=== PATIENT | male | born 1945 | race African-American/Black ===

== ENCOUNTER 2018-08-06 12:15 | Inpatient (IN) | payer OTHER ==
[2018-08-06 12:39] VITALS: BMI 23.1
--- NOTE | 2018-08-06 13:11 | PDOC ---
History of Present Illness - General Chief Complaint: Shortness of Breath Stated Complaint: SOB Time Seen by Provider: 08/06/18 13:11 - History of Present Illness Initial Comments: 73yo M with history of hypertension presenting with shortness of breath. Patient is <1 ppd smoker x 40 years. History of childhood asthma and possible COPD for which he was on an inhaler, most recently a year ago. Last saw a doctor about a year ago. Has not taken his hypertension medicine for about three months because his prescription ran out. Has felt SOB before but not with leg swelling. Reports that he is unable to walk two blocks without feeling short winded. He also feels short of breath upon laying flat. No history of [place] or heart failure. Never seen a hydrology teacher. Endorses a cough productive of clear sputum and nasal congestion. Endorses sick contacts. No recent travel. No fevers, chills, chest pain, or abdominal pain. Past History - Past Medical History Allergies/Adverse Reactions: Allergies Allergy/AdvReac Type Severity Reaction Status Date / Time No Known Allergies Allergy Unverified 08/06/18 13:01 Home Medications: Ambulatory Orders NK [No Known Home Medication] 08/06/18 COPD: No HTN: Yes Liver Disease: No - Surgical History Neurologic Surgery: No - Immunization History Immunization Up to Date: No - Suicide/Smoking/Psychosocial Hx Smoking Status: Yes Smoking History: Current every day smoker Years of Tobacco Use: 50 Have you smoked in the past 12 months: No Number of Cigarettes Smoked Daily: 20 Information on smoking cessation initiated: No Hx Alcohol Use: No Drug/Substance Use Hx: No Review of Systems - Review of Systems Comments:: Constitutional: no fever, no chills HEENT: no throat pain, +nasal congestion Cardiovascular: no chest pain, no palpitations Respiratory: +cough, +shortness of breath Gastrointestinal: no abdominal pain, no nausea, no vomiting Genitourinary: no dysuria, no frequency Musculoskeletal: no myalgia, no arthralgia Skin: no rash, no itching Neurologic: no headache, no dizziness *Physical Exam - Vital Signs Last Vital Signs Temp Pulse Resp BP Pulse Ox 97.8 F 89 16 169/106 H 94 L 08/06/18 12:36 08/06/18 12:36 08/06/18 12:36 08/06/18 12:36 08/06/18 12:36 - Physical Exam Comments: General: Awake, alert, and fully oriented, in no acute distress Head: No signs of trauma Eyes: EOMI, sclera anicteric ENT: Moist mucus membranes Neck: Normal ROM, supple Lungs: Expiratory wheezes present bilaterally Cardio: Regular rhythm, S1 and S2 present Abdomen: Soft, nontender. No guarding, no rebound, no masses Extremities: Normal range of motion, Distal pulses present SKIN: Warm, Dry, normal turgor Neurologic: Cranial nerves II through XII grossly intact. Normal speech Moderate Sedation - Procedure Monitoring Vital Signs: Procedure Monitoring Vital Signs Temperature 97.8 F 08/06/18 12:36 Pulse Rate 89 08/06/18 12:36 Respiratory Rate 16 08/06/18 12:36 Blood Pressure 169/106 H 08/06/18 12:36 O2 Sat by Pulse Oximetry (%) 94 L 08/06/18 12:36 ED Treatment Course - LABORATORY CBC & Chemistry Diagram: 08/06/18 13:52 08/06/18 13:52 Medical Decision Making - Medical Decision Making 73yo M with history of hypertension presenting with shortness of breath. -DDX includes but not limited to CHF, [place], COPD, Asthma, URI -Labs -CXR -EKG: rate 88, QTc 493, no ST d/e 08/06/18 14:44 WBC= 11.6 BNP elevated, 7742 Tpn=0.42 CXR pending -Duoneb, prednisone, ASA 08/06/18 15:03 Patient reports improvement in SOB after receiving breathing patients Discussed case with Dr. Brown who accepted patient for admission. 08/06/18 16:22 CXR report: "consolidation/pneumonia in the right lung base with small-to- moderate right pleural effusion. Mild cardiomegaly" Ordered 1g Rocephin and 500mg Azithromycin 08/06/18 18:11 08/06/18 18:25 *DC/Admit/Observation/Transfer Diagnosis at time of Disposition: CHF (congestive heart failure), COPD exacerbation - Discharge Dispostion Condition at time of disposition: Guarded Decision to Admit order: Yes - Referrals - Patient Instructions - Post Discharge Activity
[2018-08-06 14:32] LABS: BASO % 1.1 % (0-2.0); EOS % 1.2 % (0-4.5); HEMOGLOBIN 11.6 GM/dL (11.7-16.9); LYMPH % 22.5 % (8-40); MCH 25.3 pg (25.7-33.7); MCHC 33.1 g/dl (32.0-35.9); MEAN CELL VOLUME 76.4 fl (80-96); MEAN PLT VOLUME 6.6 fl (7.5-11.1); MONO % 8.6 % (3.8-10.2); NEUT % 66.6 % (42.8-82.8); PLATELET COUNT 524 K/MM3 (134-434); RBC 4.58 M/mm3 (4.00-5.60); RDW 18.3 % (11.9-15.9); WHITE BLOOD COUNT 11.6 K/mm3 (4.0-10.0)
[2018-08-06 14:46] LABS: ALBUMIN 2.8 g/dl (3.4-5.0); ALK PHOS 91 U/L (45-117); ANION GAP 7 MMOL/L (8-16); BILIRUBIN,TOTAL 0.7 mg/dL (0.2-1); BLOOD UREA NITROGEN 14 mg/dL (7-18); CALCIUM 8.8 mg/dL (8.5-10.1); CHLORIDE 102 mmol/L (98-107); CO2 28 mmol/L (21-32); GLUCOSE,RANDOM 81 mg/dL (74-106); SGOT/AST 13 U/L (15-37); SGPT/ALT 14 U/L (13-61); SODIUM 137 mmol/L (136-145); TOT PROT 7.8 g/dl (6.4-8.2)
[2018-08-06] MEDS ORDERED: predniSONE 20 MG TABLET (UD) PO ONE (15:29)
[2018-08-06] MEDS ORDERED: ALBUTEROL SO4 2.5/IPRATROPIUM 0.5 INH SOL 3 ML VIAL.NEB. NEB ONE ×2 (15:29→15:38)
[2018-08-06] MEDS ORDERED: predniSONE 20 MG TABLET (UD) ONE (15:38)
[2018-08-06] MEDS ORDERED: ACETAMINOPHEN INJECTION 100 ML IVPB ONE (15:38)
[2018-08-06] MEDS ORDERED: ALBUTEROL SO4 0.083% IH SOL 2.5 MG/3 ML VIAL.NEB. NEB ONE (15:39)
--- NOTE | 2018-08-06 15:39 | EKG ---
Test Reason : Blood Pressure : / mmHG Vent. Rate : 088 BPM Atrial Rate : 088 BPM P-R Int : 186 ms QRS Dur : 110 ms QT Int : 408 ms P-R-T Axes : 066 -19 085 degrees QTc Int : 493 ms SINUS RHYTHM WITH OCCASIONAL PREMATURE VENTRICULAR COMPLEXES SEPTAL INFARCT , AGE UNDETERMINED ABNORMAL ECG NO PREVIOUS ECGS AVAILABLE Confirmed by ISRA SOLIS MD ([id number]) on 08/06/2018 3:39:07 PM Referred By: Confirmed By:ISRA SOLIS MD
[2018-08-06] MEDS ORDERED: IPRATROPIUM BR 0.02% 0.5 MG/2.5 ML VIAL.NEB. NEB ONE (15:40)
[2018-08-06] MEDS ORDERED: ASPIRIN 81 MG CHEWABLE TABLETS PO ONE (16:54)
--- NOTE | 2018-08-06 16:54 | PDOC ---
Attending Attestation - Resident Resident Name: Patricia Harpth - ED Attending Attestation I have performed the following: I have examined & evaluated the patient, The case was reviewed & discussed with the resident, I agree w/resident's findings & plan, Exceptions are as noted - Medical Decision Making 08/06/18 16:50 A portion of this note was documented by scribe services under my direction. I have reviewed the details of the note, within reason, and agree with the documentation with the following case summary and management plan written by me. Patient treated in the ED. Nursing notes are reviewed and incorporated into the medical decision-making. Vital signs reviewed. Peripheral IV access obtained by the nurse, laboratory studies are drawn and sent, reviewed and interpreted by myself. Vital Signs Temp Pulse Resp BP Pulse Ox 97.8 F 94 H 20 164/108 H 92 L 08/06/18 12:36 08/06/18 15:17 08/06/18 15:17 18 15:17 08/06/18 15:17 73-year-old male with history of hypertension, nonadherent his medications, does not have a doctor, presents with increasing difficulty breathing. The patient reports is a chronic smoker. Patient states over the last several weeks of becoming increasingly more dyspneic and with worsening exercising tolerance. Since endorsing increasing lower extremity edema and orthopnea. Denies any chest pain. Denies recent illnesses. The patient has some slight wheezing. Differential includes COPD versus CHF. She may potentially be both. We'll give duonabs and prednisone. We may give Lasix if fluid overloaded. Patient will be admitted to the hospital for further evaluation. Troponin is elevated. The patient sustained an CT that led to congestive heart failure? We'll give aspirin. Cardiology consult. CBC, BMP 08/06/18 13:52 08/06/18 13:52 CMP Sodium 137 mmol/L (136-145) 08/06/18 13:52 Potassium 4.0 mmol/L (3.5-5.1) 08/06/18 13:52 Chloride 102 mmol/L (98-107) 08/06/18 13:52 Carbon Dioxide 28 mmol/L (21-32) 08/06/18 13:52 Anion Gap 7 MMOL/L (8-16) L 08/06/18 13:52 BUN 14 mg/dL (7-18) 08/06/18 13:52 Creatinine 1.0 mg/dL (0.55-1.3) 08/06/18 13:52 Creat Clearance w eGFR > 60 (>60) 08/06/18 13:52 Random Glucose 81 mg/dL (74-106) 08/06/18 13:52 Calcium 8.8 mg/dL (8.5-10.1) 08/06/18 13:52 Total Bilirubin 0.7 mg/dL (0.2-1) 08/06/18 13:52 AST 13 U/L (15-37) L 08/06/18 13:52 ALT 14 U/L (13-61) 08/06/18 13:52 Alkaline Phosphatase 91 U/L (45-117) 08/06/18 13:52 Troponin I 0.42 ng/ml (0.00-0.05) H 08/06/18 13:52 B-Natriuretic Peptide 7742.0 pg/ml (5-125) H 08/06/18 13:52 Total Protein 7.8 g/dl (6.4-8.2) 08/06/18 13:52 Albumin 2.8 g/dl (3.4-5.0) L 08/06/18 13:52 <Dick Lux - Last Filed: 08/06/18 16:55> - HPI HPI: 08/06/18 16:58 The patient is a 73 year old male with a past medical history of hypertension and childhood asthma (on inhaler last year) who presents to the emergency department for evaluation of shortness of breath. Patient reports feeling SOB with LE edema. Patient reports MAHAN after walking two blocks which has never occurred before. Patient admits to not taking hypertension medication since prescription ran out months ago. Patient reports associated nasal congestion and sick contact. Denies chest pain, abdominal pain, recent travel, fevers, or chills. - Physicial Exam PE: GENERAL: Awake, alert, and fully oriented, in no acute distress HEAD: No signs of trauma EYES: PERRLA, EOMI, sclera anicteric, conjunctiva clear ENT: Auricles normal inspection, hearing grossly normal, nares patent. NECK: Normal ROM, supple, no lymphadenopathy, JVD, or masses LUNGS: (+)Slight expiratory wheezing bilaterally. HEART: Regular rate and rhythm, normal S1 and S2, no murmurs, rubs or gallops ABDOMEN: Soft, nontender, normoactive bowel sounds. No guarding, no rebound. No masses EXTREMITIES: (+)1 plus pitting edema in lower extremities bilaterally. NEUROLOGICAL: Cranial nerves II through XII grossly intact. Normal speech, normal gait SKIN: Warm, Dry, normal turgor, no rashes or lesions noted. <Adele Barrett - Last Filed: 08/06/18 16:58> Heart Score/ECG Review #1 ECG reviewed & interpreted by me at: 14:05 08/06/18 16:55 NSR 88, no std/marina, occasional PVC, Q wave V1-V2, QTC 493 msec <Dick Lux - Last Filed: 08/06/18 16:55> Attestations - Attestations Documentation prepared by Adele Barrett, acting as medical staff assistant for Dick Lux MD. <Adele Barrett - Last Filed: 08/06/18 16:58>
[2018-08-06] MEDS ORDERED: ASPIRIN 81 MG CHEWABLE TABLETS ONE (17:36)
[2018-08-06] MEDS ORDERED: AZITHROMYCIN IVPB 500 MG in DEXTROSE 5%-WATER - 250 ML IVPB ONE (18:20)
[2018-08-06] MEDS ORDERED: CEFTRIAXONE 1,000 MG in DEXTROSE 5%-WATER - 50 ML IVPB ONE (18:20)
[2018-08-06] MEDS ORDERED: ACETAMINOPHEN 325 MG TABLET (FP) PO PRN (19:46)
--- NOTE | 2018-08-06 19:55 | HP ---
Admitting History and Physical - Primary Care Physician PCP: Joseph Brown - Admission History of Present Illness: 73yo M with history of hypertension presenting with shortness of breath. Patient is <1 ppd smoker x 40 years. History of childhood asthma and possible COPD for which he was on an inhaler, most recently a year ago. Last saw a doctor about a year ago. Has not taken his hypertension medicine for about three months because his prescription ran out. Has felt SOB before but not with leg swelling. Reports that he is unable to walk two blocks without feeling short winded. He also feels short of breath upon laying flat. No history of [place] or heart failure. Never seen a board certified music therapist. Endorses a cough productive of clear sputum and nasal congestion. Endorses sick contacts. No recent travel. No fevers, chills, chest pain, or abdominal pain. - Past Medical History Cardiovascular: Yes: HTN Pulmonary: Yes: COPD - Smoking History Smoking history: Current every day smoker Have you smoked in the past 12 months: No Aproximately how many cigarettes per day: 20 - Alcohol/Substance Use Hx Alcohol Use: No Home Medications - Allergies Allergies/Adverse Reactions: Allergies Allergy/AdvReac Type Severity Reaction Status Date / Time No Known Allergies Allergy Unverified 08/06/18 13:01 - Home Medications Home Medications: Ambulatory Orders Amlodipine Besylate [Norvasc -] 10 mg PO DAILY #30 tablet 08/08/18 Amox-Tr/K Cl [Augmentin 875-125mg Tablet -] 1 tab PO BID@0800,1730 #14 tablet Carvedilol [Coreg -] 3.125 mg PO BID #60 tablet 08/08/18 Prednisone 10 mg PO ASDIR #30 tablet 08/08/18 Spironolactone [Aldactone -] 25 mg PO DAILY #30 tablet 08/08/18 Physical Examination Vital Signs: Vital Signs Temperature 97.6 F 08/06/18 19:00 Pulse Rate 84 08/06/18 19:00 Respiratory Rate 28 H 08/06/18 19:00 Blood Pressure 148/96 08/06/18 19:00 O2 Sat by Pulse Oximetry (%) 96 08/06/18 17:58 Constitutional: Yes: No Distress HENT: Yes: Atraumatic Neck: Yes: Supple Cardiovascular: Yes: Regular Rate and Rhythm Respiratory: Yes: CTA Bilaterally Gastrointestinal: Yes: Normal Bowel Sounds Extremities: Yes: WNL Peripheral Pulses WNL: Yes Neurological: Yes: Alert, Oriented Labs: CBC, BMP 08/06/18 13:52 08/06/18 13:52 Imaging - Results X-ray: Report Reviewed Problem List - Problems (1) CHF (congestive heart failure) Assessment/Plan: stable Code(s): I50.9 - HEART FAILURE, UNSPECIFIED Qualifiers: Heart failure type: diastolic Heart failure chronicity: acute on chronic Qualified Code(s): I50.33 - Acute on chronic diastolic (congestive) heart failure (2) COPD exacerbation Assessment/Plan: iv steroids duo nebs Code(s): J44.1 - CHRONIC OBSTRUCTIVE PULMONARY DISEASE W (ACUTE) EXACERBATION (3) Pneumonia Assessment/Plan: iv abx id on board Code(s): J18.9 - PNEUMONIA, UNSPECIFIED ORGANISM Qualifiers: Pneumonia type: due to unspecified organism Laterality: right Lung location: lower lobe of lung Qualified Code(s): J18.1 - Lobar pneumonia, unspecified organism Assessment/Plan Laboratory Tests 08/06/18 08/06/18 08/06/18 13:52 13:52 13:52 WBC 11.6 H RBC 4.58 Hgb 11.6 L Hct 35.0 L MCV 76.4 L MCH 25.3 L MCHC 33.1 RDW 18.3 H Plt Count 524 H MPV 6.6 L Absolute Neuts (auto) 7.7 Neutrophils % 66.6 Lymphocytes % 22.5 Monocytes % 8.6 Eosinophils % 1.2 Basophils % 1.1 Nucleated RBC % 0 Sodium 137 Potassium 4.0 Chloride 102 Carbon Dioxide 28 Anion Gap 7 L BUN 14 Creatinine 1.0 Creat Clearance w eGFR > 60 Random Glucose 81 Calcium 8.8 Total Bilirubin 0.7 AST 13 L ALT 14 Alkaline Phosphatase 91 Troponin I 0.42 H B-Natriuretic Peptide 7742.0 H Cancelled Total Protein 7.8 Albumin 2.8 L Active Medications Generic Name Dose Route Start Last Admin Trade Name Freq PRN Reason Stop Dose Admin Acetaminophen 650 mg 08/06/18 19:46 Tylenol - PO Q6H PRN FEVER Amlodipine Besylate 10 mg 08/06/18 20:00 Norvasc - PO DAILY LUCY Heparin Sodium (Porcine) 5,000 unit 08/06/18 22:00 Heparin - SQ BID LUCY Active Medications Generic Name Dose Route Start Last Admin Trade Name Evensq PRN Reason Stop Dose Admin Acetaminophen 650 mg 08/06/18 19:46 Tylenol - PO Q6H PRN FEVER Amlodipine Besylate 10 mg 08/06/18 20:00 08/07/18 10:02 Norvasc - PO 10 mg DAILY LUCY Administration Heparin Sodium (Porcine) 5,000 unit 08/06/18 22:00 08/07/18 10:02 Heparin - SQ 5,000 unit BID LUCY Administration Ceftriaxone Sodium 1 gm/ 50 mls @ 100 mls/hr 08/07/18 10:00 08/07/18 10:02 Dextrose IVPB 100 mls/hr DAILY LUCY Administration Protocol Methylprednisolone Sodium Succinate 60 mg 08/06/18 20:15 08/07/18 17:09 Solu-Medrol - IVPUSH 60 mg Q8H-IV LUCY Administration
[2018-08-06] MEDS: methylPREDNISolone NA SUCC 40 MG/1 ML VIAL IVPUSH SCH (21:29)
[2018-08-06] MEDS: amLODIPine BESYLATE 10 MG TABLET (FP) PO SCH (21:29)
[2018-08-06] MEDS: HEPARIN NA (PORCINE) 5,000 UNITS/ML 1ML VIAL SQ SCH (21:34)
[2018-08-07] MEDS: methylPREDNISolone NA SUCC 40 MG/1 ML VIAL IVPUSH SCH ×3 (01:23→17:09)
[2018-08-07 06:53] LABS: BASO % 0.1 % (0-2.0); HEMATOCRIT 34.4 % (35.4-49); HEMOGLOBIN 11.5 GM/dL (11.7-16.9); LYMPH % 20.4 % (8-40); MCH 25.7 pg (25.7-33.7); MCHC 33.4 g/dl (32.0-35.9); MEAN PLT VOLUME 6.8 fl (7.5-11.1); MONO % 1.5 % (3.8-10.2); PLATELET COUNT 544 K/MM3 (134-434); RBC 4.47 M/mm3 (4.00-5.60); RDW 18.8 % (11.9-15.9); WHITE BLOOD COUNT 6.6 K/mm3 (4.0-10.0)
[2018-08-07 07:19] LABS: ALBUMIN 2.7 g/dl (3.4-5.0); ALK PHOS 88 U/L (45-117); ANION GAP 6 MMOL/L (8-16); BILIRUBIN,TOTAL 0.2 mg/dL (0.2-1); BLOOD UREA NITROGEN 19 mg/dL (7-18); CALCIUM 9.1 mg/dL (8.5-10.1); CHLORIDE 101 mmol/L (98-107); CO2 27 mmol/L (21-32); CREATININE 0.9 mg/dL (0.55-1.3); GLUCOSE,RANDOM 148 mg/dL (74-106); POTASSIUM 4.6 mmol/L (3.5-5.1); SGOT/AST 11 U/L (15-37); SGPT/ALT 14 U/L (13-61); SODIUM 134 mmol/L (136-145); TOT PROT 8.2 g/dl (6.4-8.2)
[2018-08-07] MEDS ORDERED: DEXTROSE 5%-WATER - 50 ML IVPB ONE (10:00)
[2018-08-07] MEDS ORDERED: cefTRIAXone SODIUM 1 GM VIAL ONE (10:00)
[2018-08-07] MEDS: HEPARIN NA (PORCINE) 5,000 UNITS/ML 1ML VIAL SQ SCH ×2 (10:02→21:13)
[2018-08-07] MEDS: CEFTRIAXONE 1 GM in DEXTROSE 5%-WATER - 50 ML IVPB SCH (10:02)
[2018-08-07] MEDS: amLODIPine BESYLATE 10 MG TABLET (FP) PO SCH (10:02)
--- NOTE | 2018-08-07 17:19 | PN ---
Progress Note, Physician - Current Medication List Current Medications: Active Medications Acetaminophen (Tylenol -) 650 mg PO Q6H PRN PRN Reason: FEVER Amlodipine Besylate (Norvasc -) 10 mg PO DAILY LUCY Last Admin: 08/07/18 10:02 Dose: 10 mg Heparin Sodium (Porcine) (Heparin -) 5,000 unit SQ BID LUCY Last Admin: 08/07/18 10:02 Dose: 5,000 unit Ceftriaxone Sodium 1 gm/ (Dextrose) 50 mls @ 100 mls/hr IVPB DAILY LUCY; Protocol Last Admin: 08/07/18 10:02 Dose: 100 mls/hr Methylprednisolone Sodium Succinate (Solu-Medrol -) 60 mg IVPUSH Q8H-IV LUCY Last Admin: 08/07/18 17:09 Dose: 60 mg - Objective Vital Signs: Vital Signs Temperature 97.7 F 08/07/18 13:51 Pulse Rate 88 08/07/18 13:51 Respiratory Rate 17 08/07/18 13:51 Blood Pressure 151/98 08/07/18 13:51 O2 Sat by Pulse Oximetry (%) 96 08/07/18 09:00 Constitutional: Yes: No Distress HENT: Yes: Atraumatic Neck: Yes: Supple Cardiovascular: Yes: Regular Rate and Rhythm Respiratory: Yes: CTA Bilaterally Gastrointestinal: Yes: Normal Bowel Sounds Extremities: Yes: WNL Peripheral Pulses WNL: Yes Neurological: Yes: Alert, Oriented Labs: CBC, BMP 08/07/18 06:20 08/07/18 06:20 Problem List - Problems (1) CHF (congestive heart failure) Assessment/Plan: stable Code(s): I50.9 - HEART FAILURE, UNSPECIFIED (2) COPD exacerbation Assessment/Plan: iv steroids duo nebs Code(s): J44.1 - CHRONIC OBSTRUCTIVE PULMONARY DISEASE W (ACUTE) EXACERBATION (3) Pneumonia Assessment/Plan: iv abx Code(s): J18.9 - PNEUMONIA, UNSPECIFIED ORGANISM (4) HTN (hypertension) Assessment/Plan: on meds Code(s): I10 - ESSENTIAL (PRIMARY) HYPERTENSION
--- NOTE | 2018-08-07 18:15 | CON.ID ---
Consult - Past Medical History Cardio/Vascular: Yes: HTN Pulmonary: Yes: COPD - Alcohol/Substance Use Hx Alcohol Use: No - Smoking History Smoking history: Current every day smoker Have you smoked in the past 12 months: No Aproximately how many cigarettes per day: 20 Home Medications - Allergies Allergies/Adverse Reactions: Allergies Allergy/AdvReac Type Severity Reaction Status Date / Time No Known Allergies Allergy Unverified 08/06/18 13:01 - Home Medications Home Medications: Ambulatory Orders NK [No Known Home Medication] 08/06/18 Physical Exam Vital Signs: Vital Signs Temperature 97.4 F L 08/07/18 18:00 Pulse Rate 86 08/07/18 18:00 Respiratory Rate 20 08/07/18 18:00 Blood Pressure 152/105 H 08/07/18 18:00 O2 Sat by Pulse Oximetry (%) 96 08/07/18 09:00 Labs: CBC, BMP 08/07/18 06:20 08/07/18 06:20
[2018-08-07] MEDS: ALBUTEROL SO4 2.5/IPRATROPIUM 0.5 INH SOL 3 ML VIAL.NEB. NEB PRN (21:10)
[2018-08-08] MEDS: methylPREDNISolone NA SUCC 40 MG/1 ML VIAL IVPUSH SCH ×2 (02:31→09:50)
[2018-08-08] MEDS ORDERED: DEXTROSE 5%-WATER - 50 ML IVPB ONE (09:43)
[2018-08-08] MEDS ORDERED: cefTRIAXone SODIUM 1 GM VIAL ONE (09:43)
[2018-08-08] MEDS: HEPARIN NA (PORCINE) 5,000 UNITS/ML 1ML VIAL SQ SCH ×2 (09:49→22:08)
[2018-08-08] MEDS: CEFTRIAXONE 1 GM in DEXTROSE 5%-WATER - 50 ML IVPB SCH (09:49)
[2018-08-08] MEDS: amLODIPine BESYLATE 10 MG TABLET (FP) PO SCH (09:50)
--- NOTE | 2018-08-08 14:34 | PN ---
Progress Note, Physician History of Present Illness: patient doing well no new issues breathing well still with ronchi - Current Medication List Current Medications: Active Medications Acetaminophen (Tylenol -) 650 mg PO Q6H PRN PRN Reason: FEVER Albuterol/Ipratropium (Duoneb -) 1 amp NEB Q4H PRN PRN Reason: SHORTNESS OF BREATH Last Admin: 08/07/18 21:10 Dose: 1 amp Amlodipine Besylate (Norvasc -) 10 mg PO DAILY [facility] Last Admin: 08/08/18 09:50 Dose: 10 mg Heparin Sodium (Porcine) (Heparin -) 5,000 unit SQ BID LUCY Last Admin: 08/08/18 09:49 Dose: 5,000 unit Ceftriaxone Sodium 1 gm/ (Dextrose) 50 mls @ 100 mls/hr IVPB DAILY LUCY; Protocol Last Admin: 08/08/18 09:49 Dose: 100 mls/hr Methylprednisolone Sodium Succinate (Solu-Medrol -) 60 mg IVPUSH Q8H-IV LUCY Last Admin: 08/08/18 09:50 Dose: 60 mg - Objective Vital Signs: Vital Signs Temperature 98 F 08/08/18 13:20 Pulse Rate 78 08/08/18 13:20 Respiratory Rate 17 08/08/18 13:20 Blood Pressure 154/91 08/08/18 13:20 O2 Sat by Pulse Oximetry (%) 96 08/08/18 09:00 Constitutional: Yes: No Distress, Calm Cardiovascular: Yes: Regular Rate and Rhythm Respiratory: Yes: Regular, Poor Air Entry, Rhonchi Gastrointestinal: Yes: Normal Bowel Sounds, Soft Musculoskeletal: Yes: WNL Extremities: Yes: WNL Neurological: Yes: Alert, Oriented Psychiatric: Yes: Alert, Oriented Labs: CBC, BMP 08/07/18 06:20 08/07/18 06:20 Assessment/Plan Problem List - Problems (1) CHF (congestive heart failure) Assessment/Plan: stable Code(s): I50.9 - HEART FAILURE, UNSPECIFIED (2) COPD exacerbation Assessment/Plan: iv steroids duo nebs Code(s): J44.1 - CHRONIC OBSTRUCTIVE PULMONARY DISEASE W (ACUTE) EXACERBATION (3) Pneumonia Assessment/Plan: iv abx Code(s): J18.9 - PNEUMONIA, UNSPECIFIED ORGANISM (4) HTN (hypertension) Assessment/Plan: on meds Code(s): I10 - ESSENTIAL (PRIMARY) HYPERTENSION patient still with ronchi plan continue current mgmt neb incentive yony rest as per the team
--- NOTE | 2018-08-08 16:30 | PN ---
Progress Note, Physician - Current Medication List Current Medications: Active Medications Acetaminophen (Tylenol -) 650 mg PO Q6H PRN PRN Reason: FEVER Albuterol/Ipratropium (Duoneb -) 1 amp NEB Q4H PRN PRN Reason: SHORTNESS OF BREATH Last Admin: 08/07/18 21:10 Dose: 1 amp Amlodipine Besylate (Norvasc -) 10 mg PO DAILY LUCY Last Admin: 08/08/18 09:50 Dose: 10 mg Heparin Sodium (Porcine) (Heparin -) 5,000 unit SQ BID LUCY Last Admin: 08/08/18 09:49 Dose: 5,000 unit Ceftriaxone Sodium 1 gm/ (Dextrose) 50 mls @ 100 mls/hr IVPB DAILY LUCY; Protocol Last Admin: 08/08/18 09:49 Dose: 100 mls/hr Methylprednisolone Sodium Succinate (Solu-Medrol -) 40 mg IVPUSH Q8H-IV LUCY - Objective Vital Signs: Vital Signs Temperature 98 F 08/08/18 13:20 Pulse Rate 78 08/08/18 13:20 Respiratory Rate 17 08/08/18 13:20 Blood Pressure 154/91 08/08/18 13:20 O2 Sat by Pulse Oximetry (%) 96 08/08/18 09:00 Labs: CBC, BMP 08/07/18 06:20 08/07/18 06:20 <Mohan Flores - Last Filed: 08/08/18 16:56> History of Present Illness: doing well - Current Medication List Current Medications: Active Medications Acetaminophen (Tylenol -) 650 mg PO Q6H PRN PRN Reason: FEVER Albuterol/Ipratropium (Duoneb -) 1 amp NEB Q4H PRN PRN Reason: SHORTNESS OF BREATH Last Admin: 08/07/18 21:10 Dose: 1 amp Amlodipine Besylate (Norvasc -) 10 mg PO DAILY LUCY Last Admin: 08/08/18 09:50 Dose: 10 mg Heparin Sodium (Porcine) (Heparin -) 5,000 unit SQ BID LUCY Last Admin: 08/08/18 09:49 Dose: 5,000 unit Ceftriaxone Sodium 1 gm/ (Dextrose) 50 mls @ 100 mls/hr IVPB DAILY LUCY; Protocol Last Admin: 08/08/18 09:49 Dose: 100 mls/hr Methylprednisolone Sodium Succinate (Solu-Medrol -) 60 mg IVPUSH Q8H-IV LUCY Last Admin: 08/08/18 09:50 Dose: 60 mg - Objective Vital Signs: Vital Signs Temperature 98 F 08/08/18 13:20 Pulse Rate 78 08/08/18 13:20 Respiratory Rate 17 08/08/18 13:20 Blood Pressure 154/91 08/08/18 13:20 O2 Sat by Pulse Oximetry (%) 96 08/08/18 09:00 Constitutional: Yes: No Distress HENT: Yes: Atraumatic Neck: Yes: Supple Cardiovascular: Yes: Regular Rate and Rhythm Respiratory: Yes: CTA Bilaterally Gastrointestinal: Yes: Normal Bowel Sounds Extremities: Yes: WNL Edema: No Peripheral Pulses WNL: Yes Neurological: Yes: Alert, Oriented Labs: CBC, BMP 08/07/18 06:20 08/07/18 06:20 <Joseph Brown - Last Filed: 08/09/18 18:54> Problem List - Problems (1) CHF (congestive heart failure) Code(s): I50.9 - HEART FAILURE, UNSPECIFIED Qualifiers: Heart failure type: diastolic Heart failure chronicity: acute on chronic Qualified Code(s): I50.33 - Acute on chronic diastolic (congestive) heart failure (2) COPD exacerbation Code(s): J44.1 - CHRONIC OBSTRUCTIVE PULMONARY DISEASE W (ACUTE) EXACERBATION (3) Pneumonia Code(s): J18.9 - PNEUMONIA, UNSPECIFIED ORGANISM Qualifiers: Pneumonia type: due to unspecified organism Laterality: right Lung location: lower lobe of lung Qualified Code(s): J18.1 - Lobar pneumonia, unspecified organism (4) HTN (hypertension) Code(s): I10 - ESSENTIAL (PRIMARY) HYPERTENSION <Joseph Brown - Last Filed: 08/09/18 18:54> Assessment/Plan Acetaminophen (Tylenol -) 650 mg PO Q6H PRN PRN Reason: FEVER Albuterol/Ipratropium (Duoneb -) 1 amp NEB Q4H PRN PRN Reason: SHORTNESS OF BREATH Last Admin: 08/07/18 21:10 Dose: 1 amp Amlodipine Besylate (Norvasc -) 10 mg PO DAILY LUCY Last Admin: 08/08/18 09:50 Dose: 10 mg Heparin Sodium (Porcine) (Heparin -) 5,000 unit SQ BID LUCY Last Admin: 08/08/18 09:49 Dose: 5,000 unit Ceftriaxone Sodium 1 gm/ (Dextrose) 50 mls @ 100 mls/hr IVPB DAILY LUCY; Protocol Last Admin: 08/08/18 09:49 Dose: 100 mls/hr Methylprednisolone Sodium Succinate (Solu-Medrol -) 60 mg IVPUSH Q8H-IV LUCY Last Admin: 08/08/18 09:50 Dose: 60 mg <Mohan Flores - Last Filed: 08/08/18 16:56>
--- NOTE | 2018-08-08 16:56 | CON.CARD ---
Consult Consult Specialty:: Cardiology Referred by:: Joseph Brown MD Reason for Consultation:: Dyspnea - History of Present Illness Chief Complaint: Dyspnea History of Present Illness: 73yo M with history of hypertension off antihypertensive agents due to noncompliance, smoker presented with shortness of breath since last Monday, chest tightness, orthopnea, without near or true syncope, palpitations, LE edema. Patient is <1 ppd smoker x 40 years. History of childhood asthma and possible COPD for which he was on an inhaler, most recently a year ago. Last saw a doctor about a year ago. Has not taken his hypertension medicine for about three months because his prescription ran out. Reports that he is unable to walk two blocks without feeling short winded. He also feels short of breath upon laying flat. No history of [place] or heart failure. Never seen a purchasing associate. Endorses a cough productive of clear sputum and nasal congestion. Endorses sick contacts. No recent travel. No fevers, chills, chest pain, or abdominal pain. Reports facial, lip and tongue swelling on Valsartan. - History Source History Provided By: Patient Limitations to Obtaining History: No Limitations - Past Medical History Cardio/Vascular: Yes: HTN Pulmonary: Yes: COPD - Alcohol/Substance Use Hx Alcohol Use: No - Smoking History Smoking history: Current every day smoker Have you smoked in the past 12 months: No Aproximately how many cigarettes per day: 20 Home Medications - Allergies Allergies/Adverse Reactions: Allergies Allergy/AdvReac Type Severity Reaction Status Date / Time No Known Allergies Allergy Unverified 08/06/18 13:01 - Home Medications Home Medications: Ambulatory Orders NK [No Known Home Medication] 08/06/18 Review of Systems - Review of Systems Cardiovascular: reports: Shortness of Breath Respiratory: reports: Exercise Intolerance, Orthopnea, SOB, SOB on Exertion Vital Signs: Vital Signs Temperature 98 F 08/08/18 13:20 Pulse Rate 78 08/08/18 13:20 Respiratory Rate 17 08/08/18 13:20 Blood Pressure 154/91 08/08/18 13:20 O2 Sat by Pulse Oximetry (%) 96 08/08/18 09:00 Constitutional: Yes: No Distress, Calm, Thin Neck: Yes: Supple Respiratory: Yes: Regular, Diminished Gastrointestinal: Yes: Normal Bowel Sounds, Soft Cardiovascular: Yes: Regular Rate and Rhythm JVD: No Carotid Bruit: No Heart Sounds: Yes: S1, S2 Murmur: Yes: Systolic Murmur, Grade 1 Edema: No - Other Data Labs, Other Data: CBC, BMP 08/07/18 06:20 08/07/18 06:20 NSR @ 88 LVH, PVC Echo: Pending Imaging - Results Chest X-ray: Report Reviewed (Rt lung base consolidation and effusion) Problem List - Problems (1) Hypertensive cardiomegaly with heart failure Code(s): I11.0 - HYPERTENSIVE HEART DISEASE WITH HEART FAILURE (2) CHF (congestive heart failure) Code(s): I50.9 - HEART FAILURE, UNSPECIFIED Qualifiers: Heart failure type: diastolic Heart failure chronicity: acute on chronic Qualified Code(s): I50.33 - Acute on chronic diastolic (congestive) heart failure (3) Pneumonia Code(s): J18.9 - PNEUMONIA, UNSPECIFIED ORGANISM Qualifiers: Pneumonia type: due to unspecified organism Laterality: right Lung location: lower lobe of lung Qualified Code(s): J18.1 - Lobar pneumonia, unspecified organism (4) Premature ventricular contraction Code(s): I49.3 - VENTRICULAR PREMATURE DEPOLARIZATION Assessment/Plan 1. Acute on chronic diastolic failure with subendocardial ischemic injury 2. Hypertensive cardiomyopathy 3. Valsartan-associated angioedema 4. PVC 5. RLL CAP 6. Microcytic anemia P:1. Diuresis with monitor clinical response, renal fxn and electrolytes, trend trops to document peak 2. Start carvedilol 3.125 bid, Aldactone 25 qd, Norvasc 10 qd with uptitration as tolerated 3. Echo to assess ventricular and valve fxn 4. Complete empiric abx course, will d/c steroids as not in COPD flare, DVT prophylaxis 5. Thank you for consultative opportunity
[2018-08-08] MEDS ORDERED: FUROSEMIDE 40 MG/4 ML INJECTABLE VIAL IVPUSH ONE (17:30)
[2018-08-08] MEDS ORDERED: methylPREDNISolone NA SUCC 40 MG/1 ML VIAL IVPUSH SCH (18:00)
[2018-08-08] MEDS: SPIRONOLACTONE 25 MG TABLET (FP) PO SCH (18:09)
[2018-08-08] MEDS: NICOTINE 21 MG/24 HOURS TOPICAL PATCH TD SCH (22:08)
[2018-08-08] MEDS: CARVEDILOL 3.125 MG TABLET (FP) PO SCH (22:08)
[2018-08-09] MEDS: ALBUTEROL SO4 2.5/IPRATROPIUM 0.5 INH SOL 3 ML VIAL.NEB. NEB PRN ×2 (06:10→15:00)
[2018-08-09 07:51] LABS: ANION GAP 6 MMOL/L (8-16); BLOOD UREA NITROGEN 36 mg/dL (7-18); CALCIUM 9.1 mg/dL (8.5-10.1); CHLORIDE 103 mmol/L (98-107); CO2 28 mmol/L (21-32); GLUCOSE,RANDOM 86 mg/dL (74-106); POTASSIUM 4.2 mmol/L (3.5-5.1); SODIUM 136 mmol/L (136-145)
[2018-08-09] MEDS ORDERED: predniSONE 20 MG TABLET (UD) PO SCH (10:00)
[2018-08-09] MEDS: amLODIPine BESYLATE 10 MG TABLET (FP) PO SCH (10:10)
[2018-08-09] MEDS: AMOX TR/POT CLAV 875MG/125MG TABLETS (FP) PO SCH ×2 (10:10→18:07)
[2018-08-09] MEDS: SPIRONOLACTONE 25 MG TABLET (FP) PO SCH (10:10)
[2018-08-09] MEDS: CARVEDILOL 3.125 MG TABLET (FP) PO SCH (10:10)
[2018-08-09] MEDS: HEPARIN NA (PORCINE) 5,000 UNITS/ML 1ML VIAL SQ SCH (10:10)
[2018-08-09] MEDS: NICOTINE 21 MG/24 HOURS TOPICAL PATCH TD SCH ×2 (10:10→10:37)
--- NOTE | 2018-08-09 11:02 | PN ---
Progress Note, Physician History of Present Illness: MAHAN, orthopnea and LE edema resolving with diuresis. - Current Medication List Current Medications: Active Medications Acetaminophen (Tylenol -) 650 mg PO Q6H PRN PRN Reason: FEVER Albuterol/Ipratropium (Duoneb -) 1 amp NEB Q4H PRN PRN Reason: SHORTNESS OF BREATH Last Admin: 08/09/18 06:10 Dose: 1 amp Amlodipine Besylate (Norvasc -) 10 mg PO DAILY ON LICENSE OF [facility] Last Admin: 08/09/18 10:10 Dose: 10 mg Amoxicillin/Clavulanate Potassium (Augmentin - 875mg Tablet) 1 tab PO BID@0800, 1730 ON LICENSE OF [facility] Last Admin: 08/09/18 10:10 Dose: 1 tab Carvedilol (Coreg -) 3.125 mg PO BID ON LICENSE OF [facility] Last Admin: 08/09/18 10:10 Dose: 3.125 mg Heparin Sodium (Porcine) (Heparin -) 5,000 unit SQ BID ON LICENSE OF [facility] Last Admin: 08/09/18 10:10 Dose: 5,000 unit Nicotine (Nicoderm Patch -) 21 mg TD DAILY ON LICENSE OF [facility] Last Admin: 08/09/18 10:37 Dose: Not Given Prednisone (Deltasone -) 40 mg PO DAILY ON LICENSE OF [facility] Last Admin: 08/09/18 10:10 Dose: 40 mg Spironolactone (Aldactone -) 25 mg PO DAILY ON LICENSE OF [facility] Last Admin: 08/09/18 10:10 Dose: 25 mg - Objective Vital Signs: Vital Signs Temperature 97.5 F L 08/09/18 06:00 Pulse Rate 87 08/09/18 06:00 Respiratory Rate 20 08/09/18 06:00 Blood Pressure 142/103 H 08/09/18 06:00 O2 Sat by Pulse Oximetry (%) 96 08/08/18 21:00 Constitutional: Yes: No Distress, Calm, Thin Neck: Yes: Supple Cardiovascular: Yes: Regular Rate and Rhythm, Murmur (1/6 SM) Respiratory: Yes: Regular, Diminished Gastrointestinal: Yes: Normal Bowel Sounds, Soft Edema: Yes Edema: LLE: Trace, RLE: Trace Labs: CBC, BMP 08/07/18 06:20 08/09/18 06:30 Problem List - Problems (1) Hypertensive cardiomegaly with heart failure Code(s): I11.0 - HYPERTENSIVE HEART DISEASE WITH HEART FAILURE (2) CHF (congestive heart failure) Code(s): I50.9 - HEART FAILURE, UNSPECIFIED Qualifiers: Heart failure type: diastolic Heart failure chronicity: acute on chronic Qualified Code(s): I50.33 - Acute on chronic diastolic (congestive) heart failure (3) Pneumonia Code(s): J18.9 - PNEUMONIA, UNSPECIFIED ORGANISM Qualifiers: Pneumonia type: due to unspecified organism Laterality: right Lung location: lower lobe of lung Qualified Code(s): J18.1 - Lobar pneumonia, unspecified organism (4) Premature ventricular contraction Code(s): I49.3 - VENTRICULAR PREMATURE DEPOLARIZATION Assessment/Plan 1. Acute on chronic diastolic failure with subendocardial ischemic injury 2. Hypertensive cardiomyopathy 3. Valsartan-associated angioedema 4. PVC 5. RLL CAP 6. Microcytic anemia P:1. Oral diuresis with monitor clinical response, renal fxn and electrolytes, trops downtrending 2. Increase carvedilol 6.25 bid, continue Aldactone 25 qd, Norvasc 10 qd with uptitration as tolerated 3. Echo to assess ventricular and valve fxn 4. Complete empiric abx course, BD as needed, DVT prophylaxis
[2018-08-09] MEDS ORDERED: FUROSEMIDE 20 MG TABLET (FP) PO SCH (11:30)
--- NOTE | 2018-08-09 14:29 | PN ---
Progress Note, Physician History of Present Illness: doing better no issues feels much better - Current Medication List Current Medications: Active Medications Acetaminophen (Tylenol -) 650 mg PO Q6H PRN PRN Reason: FEVER Albuterol/Ipratropium (Duoneb -) 1 amp NEB Q4H PRN PRN Reason: SHORTNESS OF BREATH Last Admin: 08/09/18 06:10 Dose: 1 amp Amlodipine Besylate (Norvasc -) 10 mg PO DAILY COUNT INCLUDES THE [facility] Last Admin: 08/09/18 10:10 Dose: 10 mg Amoxicillin/Clavulanate Potassium (Augmentin - 875mg Tablet) 1 tab PO BID@0800, 1730 COUNT INCLUDES THE [facility] Last Admin: 08/09/18 10:10 Dose: 1 tab Carvedilol (Coreg -) 3.125 mg PO BID COUNT INCLUDES THE [facility] Last Admin: 08/09/18 10:10 Dose: 3.125 mg Furosemide (Lasix -) 20 mg PO DAILY COUNT INCLUDES THE [facility] Last Admin: 08/09/18 12:18 Dose: 20 mg Heparin Sodium (Porcine) (Heparin -) 5,000 unit SQ BID COUNT INCLUDES THE [facility] Last Admin: 08/09/18 10:10 Dose: 5,000 unit Nicotine (Nicoderm Patch -) 21 mg TD DAILY COUNT INCLUDES THE [facility] Last Admin: 08/09/18 10:37 Dose: Not Given Prednisone (Deltasone -) 40 mg PO DAILY COUNT INCLUDES THE [facility] Last Admin: 08/09/18 10:10 Dose: 40 mg Spironolactone (Aldactone -) 25 mg PO DAILY COUNT INCLUDES THE [facility] Last Admin: 08/09/18 10:10 Dose: 25 mg - Objective Vital Signs: Vital Signs Temperature 97.5 F L 08/09/18 06:00 Pulse Rate 88 08/09/18 10:00 Respiratory Rate 18 08/09/18 10:00 Blood Pressure 120/60 08/09/18 10:00 O2 Sat by Pulse Oximetry (%) 96 08/09/18 09:00 Constitutional: Yes: No Distress, Calm Cardiovascular: Yes: S1, S2 Respiratory: Yes: Regular, CTA Bilaterally Gastrointestinal: Yes: Normal Bowel Sounds, Soft Musculoskeletal: Yes: WNL Extremities: Yes: WNL Neurological: Yes: Alert, Oriented Psychiatric: Yes: Alert, Oriented Labs: CBC, BMP 08/07/18 06:20 08/09/18 06:30 Assessment/Plan Problem List - Problems (1) CHF (congestive heart failure) Assessment/Plan: stable Code(s): I50.9 - HEART FAILURE, UNSPECIFIED (2) COPD exacerbation Assessment/Plan: iv steroids duo nebs Code(s): J44.1 - CHRONIC OBSTRUCTIVE PULMONARY DISEASE W (ACUTE) EXACERBATION (3) Pneumonia Assessment/Plan: iv abx Code(s): J18.9 - PNEUMONIA, UNSPECIFIED ORGANISM (4) HTN (hypertension) Assessment/Plan: on meds Code(s): I10 - ESSENTIAL (PRIMARY) HYPERTENSION patient still with ronchi plan continue current mgmt neb incentive yony rest as per the team continue oral abx
[2018-08-09 15:16] VITALS: BP 142/87; PULSE 69; TEMP 97.7
--- NOTE | 2018-08-09 15:59 | DS ---
Physical Examination Vital Signs: Vital Signs Temperature 97.7 F 08/09/18 15:15 Pulse Rate 69 08/09/18 15:15 Respiratory Rate 17 08/09/18 15:15 Blood Pressure 142/87 08/09/18 15:15 O2 Sat by Pulse Oximetry (%) 96 08/09/18 09:00 Constitutional: Yes: No Distress HENT: Yes: Atraumatic Neck: Yes: Supple Cardiovascular: Yes: Regular Rate and Rhythm Respiratory: Yes: CTA Bilaterally Gastrointestinal: Yes: Normal Bowel Sounds Extremities: Yes: WNL Edema: No Peripheral Pulses WNL: Yes Neurological: Yes: Alert, Oriented Labs: CBC, BMP 08/07/18 06:20 08/09/18 06:30 Discharge Summary Reason For Visit: CHF; ACUTE EXACERBATION OF COPD Current Active Problems CHF (congestive heart failure) (Acute) COPD exacerbation (Acute) HTN (hypertension) (Acute) Hypertensive cardiomegaly with heart failure (Acute) Pneumonia (Acute) Premature ventricular contraction (Acute) Condition: Guarded - Instructions Referrals: Joseph Brown MD [Staff Physician] - Mohan Flores MD [Staff Physician] - Disposition: HOME - Home Medications Comprehensive Discharge Medication List: Ambulatory Orders Amlodipine Besylate [Norvasc -] 10 mg PO DAILY #30 tablet 08/08/18 Amox-Tr/K Cl [Augmentin 875-125mg Tablet -] 1 tab PO BID@0800,1730 #14 tablet Carvedilol [Coreg -] 3.125 mg PO BID #60 tablet 08/08/18 Prednisone 10 mg PO ASDIR #30 tablet 08/08/18 Spironolactone [Aldactone -] 25 mg PO DAILY #30 tablet 08/08/18 ma home
--- NOTE | 2018-08-09 16:47 | ECHO ---
Name: JUAN SIMONS Exam:Adult Echocardiogram Study Date: 08/09/2018 03:33 PM Age: 73 yrs Reason For Study: HYPERTENSIVE CARDIOMYOPATHY Height: 75 in Weight: 183 lb BSA: 2.1 m2 MMode/2D Measurements & Calculations IVSd: 1.1 cm Ao root diam: 3.0 cm LVIDd: 5.4 cm LA dimension: 5.1 cm LVIDs: 4.5 cm LVPWd: 1.1 cm EDV(Teich): 139.9 ml LAV (MOD-bp): 143.0 ml ESV(Teich): 94.3 ml TAPSE: 3.0 cm Doppler Measurements & Calculations MV E max delgado: 93.3 cm/sec Ao V2 max: 137.1 cm/sec MV A max delgado: 47.9 cm/sec Ao max P.5 mmHg MV E/A: 1.9 AI P1/2t: 366.5 msec MV dec time: 0.16 sec AI max delgado: 392.5 cm/sec LV V1 max P.0 mmHg AI max P.6 mmHg LV V1 max: 86.4 cm/sec AI dec slope: 313.6 cm/sec2 MR max delgado: 420.6 cm/sec TR max delgado: 248.1 cm/sec MR max P.1 mmHg TR max P.8 mmHg PI end-d delgado: 161.5 cm/sec Med Peak E' Delgado: 5.4 cm/sec Med E/e': 17.2 Lat Peak E' Delgado: 7.3 cm/sec Lat E/e': 12.8 Procedure A complete two-dimensional transthoracic echocardiogram was performed (2D, M-mode, Doppler and color flow Doppler). Left Ventricle The left ventricle is normal in size. There is mild concentric left ventricular hypertrophy. Left mariella tricular systolic function is mildly reduced. Ejection Fraction = 45-50%. There is mild global hypokinesis of the left ventricle. Right Ventricle The right ventricle is normal in size and function. Atria The left atrium is moderately dilated. Right atrial size is normal. Mitral Valve There is moderate to severe mitral regurgitation. Tricuspid Valve There is mild tricuspid regurgitation. Right ventricular systolic pressure is normal. Aortic Valve The aortic valve is trileaflet. There is mild aortic valve thickening. No hemodynamically significant valvular aortic stenosis. Moderate aortic regurgitation. Pulmonic Valve Trace pulmonic valvular regurgitation. Great Vessels The aortic root is normal size. Pericardium/Pleura There is no pericardial effusion. Interpretation Summary There is mild concentric left ventricular hypertrophy. Left ventricular systolic function is mildly reduced. There is mild global hypokinesis of the left ventricle. The right ventricle is normal in size and function. The left atrium is moderately dilated. There is moderate to severe mitral regurgitation. There is mild tricuspid regurgitation. Moderate aortic regurgitation. Trace pulmonic valvular regurgitation. MD Keyur Fisher 08/09/2018 04:46 PM
== END 2018-08-09 18:41 | disposition home or self-care (01) | DRG 291 ==
LOC: JER 12:15 → JERBED 16:20 → J5S 18:32
PROVIDERS: ADMIT Internal Medicine; ATTEND Internal Medicine
PROC: 3E0F7GC Introduction of Other Therapeutic Substance into Respiratory Tract, Via Natural or Artificial Opening (ICD-10-PCS; principal; 2018-08-06)
DX: I11.0 Hypertensive heart disease with heart failure (principal); J18.9 Pneumonia, unspecified organism; J44.1 Chronic obstructive pulmonary disease with (acute) exacerbation; I50.33 Acute on chronic diastolic (congestive) heart failure; I43 Cardiomyopathy in diseases classified elsewhere; F17.210 Nicotine dependence, cigarettes, uncomplicated; Z91.14 Patient's other noncompliance with medication regimen; D50.9 Iron deficiency anemia, unspecified; I49.3 Ventricular premature depolarization
CPT/HCPCS: 36415; 71046-TC-FY; 80048; 80053; 83880; 84484; 85025; 93005; 93010; 93306-TC; 94640; 99283-25; J1644